=== PATIENT | female | born 1950 | race Two or more races ===

== ENCOUNTER 2018-02-21 15:03 | Emergency (ER) | payer OTHER ==
[~2018-02-21] VITALS: Ht 157.5 cm; Wt 59.0 kg
[~2018-02-21 15:03] MED LIST: ATENOLOL25 MG; ATENOLOL50 MG; AZITHROMYCIN250 MG PO; CIPRO500 MG PO; LEVSIN/SL0.125 MG SL; PEPCID40 MG PO; PROTONIX40 MG
[2018-02-21] MEDS ORDERED: SYNTHROID75 MCG (15:28)
[2018-02-21] MEDS ORDERED: PROZAC10 MG (15:28)
[2018-02-21] MEDS ORDERED: NEURONTIN300 MG (15:28)
== END 2018-02-21 19:41 | disposition home or self-care (01) ==
LOC: ER 15:04
DX: R10.84 Generalized abdominal pain (principal); F41.8 Other specified anxiety disorders

== ENCOUNTER 2023-06-20 15:56 | Inpatient (IN) | payer OTHER ==
[~2023-06-20] VITALS: Ht 162.6 cm; Wt 61.2 kg
[~2023-06-20 15:56] MED LIST changes: +NEURONTIN300 MG; +PROZAC10 MG; +SYNTHROID75 MCG
--- NOTE | 2023-06-20 16:36 | NUR ---
PACIENTE ALERTA Y ORIENTADA POR 3 ESFERAS REFIERE DIFICULTAD RESPIRATORIA. SE OBSERVA PACIENTE CON RESPIRACIONES ABDOMINALES, SE MIDEN S/V, SE REALIZA EKG, SE REALIZA DEXTRO. SE PRESENTA PACIENTE A DR, LYNNE QUIEN REFIERE UBICAR PACIENTE EN UNIDAD DE CRITICO. SE CONECTA PACIENTE A MONITOR CARDIACO Y SE ENTREGA A RN RAHMAN.
--- NOTE | 2023-06-20 16:52 | NUR ---
SE CANALIZA PACIENTE, SE STEPHANI MUJESTRAS CON MEDIDAS ASEPTICAS CORRESPONDIENTES PACIENTE CONECTADA A MONJTOR CARDIACO CON SATUROMETRO. SE COLOCA CANULA NASAL A 3 LITROS. TYSON RAHMAN RN NOTIFICA TERAPIA Y ABG A PERSONAL DE TERAPIA RESPIRATORIA. BARANDAS ELEVADAS POR BROWN SEGURIDAD. PACIENTE EN ICU #2 CAMA #1 SE CONTINUA MONITOREANDO EN TURNO POR TYSON RAHMAN RN. PACIENTE EN CAMA CON BARANDAS ELEVADAS POR BROWN SEGURIDAD.
--- NOTE | 2023-06-20 18:00 | NUR ---
DR MAGED CAO A PTE VENTURY MASK AL 40%.
--- NOTE | 2023-06-20 21:11 | NUR ---
SE EJECUTAN ORDENES VERBALES DEL DR NAVARRO. PERSONAL DE TERAPIA ADMINISTRA TERAPIAS JUAN ORDEN Y SE ADMINISTRA MEDICAMENTO JUAN ORDEN. SE MANTIENE PTE BAJO OBSERVACION.
== END 2023-06-25 12:02 | disposition left against medical advice (07) | DRG 191 ==
LOC: ER 15:56 → MEDI 06-21 00:09
PROVIDERS: Emergency Medicine; ADMIT Internal Medicine; ATTEND Internal Medicine
DX: J44.1 Chronic obstructive pulmonary disease with (acute) exacerbation (principal); J45.901 Unspecified asthma with (acute) exacerbation; N17.9 Acute kidney failure, unspecified; E87.6 Hypokalemia; E11.65 Type 2 diabetes mellitus with hyperglycemia; Z79.4 Long term (current) use of insulin; I10 Essential (primary) hypertension; E03.9 Hypothyroidism, unspecified; Z20.822 Contact with and (suspected) exposure to COVID-19; F17.200 Nicotine dependence, unspecified, uncomplicated

== ENCOUNTER 2023-07-19 19:54 | Emergency (ER) | payer OTHER ==
[~2023-07-19] VITALS: Ht 165.1 cm; Wt 62.1 kg
== END 2023-07-19 21:11 | disposition home or self-care (01) ==
LOC: ER 19:54 → EMR PED 19:56 → ER 21:11
DX: S90.871A Other superficial bite of right foot, initial encounter (principal); W54.0XXA Bitten by dog, initial encounter; Y93.89 Activity, other specified; Y92.018 Other place in single-family (private) house as the place of occurrence of the external cause
CPT/HCPCS: 90471; 90714; 96372; 99284; J0696

== ENCOUNTER 2024-07-21 08:54 | Emergency (ER) | payer OTHER ==
[~2024-07-21] VITALS: Ht 162.6 cm; Wt 57.2 kg
[2024-07-21] MEDS ORDERED: METHYLPREDNISOLONE SOD SUCC 125 MG VIAL IV ONE (09:00)
[2024-07-21 09:38] LABS: HEMATOCRIT 29.6 % (36.0-45.00); MEAN CELL VOLUME 89.4 fL (80.00-100.00); MEAN CORPUSCULAR HEMOGLOBIN 30.1 pg (27.00-32.0); MEAN CORPUSCULAR HGB CONC 33.7 g/dl (32.0-36.0); PLATELET COUNT 276 K/uL (150-450); RED BLOOD COUNT 3.32 M/uL (4.00-6.00); RED CELL DISTRIBUTION WIDTH 14.9 % (11.5-14.5)
== END 2024-07-21 11:46 | disposition home or self-care (01) ==
LOC: ER 08:54
PROVIDERS: Emergency Medicine
DX: J06.9 Acute upper respiratory infection, unspecified (principal); R05.9 Cough, unspecified; Z20.822 Contact with and (suspected) exposure to COVID-19; I10 Essential (primary) hypertension; E03.8 Other specified hypothyroidism
CPT/HCPCS: 36415; 82803; 96365; 99282; J3490

== ENCOUNTER → 2024-07-25 | Emergency (ER) | payer OTHER ==
[~2024-07-25] VITALS: Ht 160 cm; Wt 106.6 kg
[2024-07-25 10:24] LABS: HEMATOCRIT 33.3 % (36.0-45.00); MEAN CELL VOLUME 91.1 fL (80.00-100.00); MEAN CORPUSCULAR HGB CONC 32.9 g/dl (32.0-36.0); PLATELET COUNT 341 K/uL (150-450); RED BLOOD COUNT 3.66 M/uL (4.00-6.00); RED CELL DISTRIBUTION WIDTH 15.6 % (11.5-14.5)
[2024-07-25 10:42] LABS: INR 0.97; PARTIAL THROMBOPLASTIN TIME 22.5 SECONDS (22.0-34.0); PROTHROMBIN TIME 10.6 SECONDS (9.0-11.5)
[2024-07-25 10:48] LABS: ALBUMIN 3.7 gm/dL (3.4-5.0); BILIRUBIN TOTAL 0.29 mg/dL (0.3-1.2); CALCIUM 9.7 mg/dL (8.5-10.1); CREATININE SERUM 0.88 mg/dL (0.55-1.02); GFR 62.64; GLOBULINA 3.2 G/DL (2.4-3.5); POTASSIUM 4.94 mEq/L (3.5-5.1); TOTAL PROTEIN 6.9 gm/dL (6.4-8.2)
[2024-07-25 12:19] LABS: ABG PH 7.002 (7.35-7.45); ABG pCO2 90.7 mmHg (35-45)
[2024-07-25 12:20] LABS: ABG PO2 395.8 mmHg (80-100); BASE EXCESS -11.4 mmol/l; SaO2 99.8 %; Tco2 24.8 mmol/l
[2024-07-25 12:21] LABS: allen test SATISFACTORY; o2 100 %; puncture site RADIAL LEFT
== END | disposition expired ==
LOC: ER 09:51
PROVIDERS: General Practice
DX: I46.9 Cardiac arrest, cause unspecified (principal); I10 Essential (primary) hypertension; E03.9 Hypothyroidism, unspecified; J44.9 Chronic obstructive pulmonary disease, unspecified; Z87.09 Personal history of other diseases of the respiratory system